=== PATIENT | female | born 1995 | race Caucasian/White ===

== ENCOUNTER → 2023-11-07 15:36 | Outpatient (CLI) | payer OTHER, SELFPAY ==
--- NOTE | 2023-11-07 15:41 | DI.US.S_ITS ---
PROCEDURE: US OB <= 14 WK FETUS ADD GEST INDICATIONS: CONFIRM AGUIRRE VS TWIN OUTSIDE/PRIOR DATING DATA: Last menstrual period (LMP): 09/09/2023. LMP-based estimated date of delivery (FRANCISCO): 06/15/2024. First dating scan (date and location): 11/07/2023. Estimated date of delivery (FRANCISCO) from first dating scan: 06/14/2024. TECHNIQUE: Real-time scanning was performed of the fetuses and maternal pelvic organs, with image documentation. Endovaginal scanning: Performed for better visualization of the fetuses and maternal adnexal structures. COMPARISON: None. FINDINGS: General: An intrauterine diamniotic/ dichorionic twin is present, as evidenced by separate placental sites and/or intervening membrane thickness of greater than 2 mm at this early gestational age. Embryo A: [place]-rump length measures 3.7 cm corresponding to 9 weeks 0 days Heart rate: 175 beats per minute In the gestational sac of Embryo A, there is a nonspecific appearance of complex echogenicity measuring 2.2 x 2.1 x 2.1 cm. There is mild prominence of perigestational vessels without definitive perigestational hemorrhage. Embryo B: [place] lump length measures 3.8 cm corresponding to 9 weeks 1 day Heart rate: 173 beats per minute Maternal organs: Ovaries are remarkable with visualized portions, noting left ovary is not well seen.. IMPRESSION: Twin pregnancies as described above. Amorphous appearance of echogenicity within the gestational sac of embryo A. This raises significant suspicion for a prior twin demise within the gestational sac. However, other etiology such as acardiac twin can also not be excluded. Referral to tertiary care center is recommended for further evaluation. The above findings were discussed Dr. Jolynn Cervantes on 11/08/2023 at 2:00 p.m.. We strive to produce accurate, complete, and clear reports of imaging services. To assist us in improving patient care, this report was composed using standard report templates and voice recognition software. Therefore, it may contain abnormal punctuation, insertions and/or omissions. Occasional wrong-word or sound-alike substitutions may occur. Though we review the report and make efforts to correct it, we do recommend that the report be read carefully in proper context to recognize any text inaccuracies. Dictated by: Robyn Brink M.D. on 11/08/2023 at 12:16 Transcribed by: GAMAL on 11/08/2023 at 12:57 Approved by: Robyn Brink M.D. on 11/09/2023 at 10:43
== END ==
PROVIDERS: Referring Provider Advanced Practice Midwife; Visit Provider Advanced Practice Midwife
DX: O30.041 Twin pregnancy, dichorionic/diamniotic, first trimester (principal); Z3A.09 9 weeks gestation of pregnancy
CPT/HCPCS: 76801; 76802; 76817